=== PATIENT | female | born 1945 | race Caucasian/White ===

== ENCOUNTER 2025-02-23 12:29 | Emergency (ER) | payer MEDICARE, SELFPAY ==
[2025-02-23 12:30] VITALS: BMI 18.5
[2025-02-23 12:39] VITALS: BP 127/82; PULSE 116; RESP 18; TEMP 37.4; O2SAT 97
--- NOTE | 2025-02-23 12:48 | XR_ITS ---
EXAMINATION: Right knee 3 views TECHNIQUE: AP oblique lateral right knee 3 views Date and time: February 23, 2025, 1303 hours INDICATION: Right knee pain 2 months, open nonhealing wound and tumor mass on the lateral side of the knee FINDINGS: Large, at least 13 cm polypoid soft tissue mass lateral to the knee Severe osteopenia No fracture No cortical bone destruction IMPRESSION: No fracture, no cortical bone destruction
--- NOTE | 2025-02-23 12:51 | EDNOTE_ITS ---
ED General RME/HPI General Chief complaint: Wound/Laceration Stated complaint: wound check Time Seen by Provider: 02/23/25 12:46 Arrival date/time: 02/23/25 12:29 CC: Open ulceration to the lateral aspect of the right knee HPI ongoing since 2019 with progressive increase in severity. Was referred by PCP for concern of osteomyelitis versus septic arthritis. Patient denies any knee pain, denies any knee tenderness. 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 Patient is afebrile nontoxic-appearing not in any acute distress. Ulceration is painless Related Data Allergies Allergy/AdvReac Type Severity Reaction Status Date / Time No Known Allergies Allergy Verified 02/23/25 12:33 Review of Systems Review of Systems Narrative Review of Systems: GEN: No fever, no chills, no weight loss EYES: No discharge, no visual changes, no pain HEENT: No ear pain, no congestion, no sore throat PULM: No shortness of breath, no cough, no congestion CV: No chest pain, no dyspnea on exertion, no palpitations GI: No nausea, no vomiting, no diarrhea, no pain, no constipation : No frequency, no urgency, no dysuria MUSC/SKEL: No joint pain, no back pain SKIN: Right knee ulceration, no rash PSYCH: No hallucinations, no depression HEME/LYMPH: No easy bleeding or bruising tendencies NEURO: No weakness, no headache Past Medical History Social History SMOKING STATUS: Never smoker ED Exam Narrative Physical exam: [General: Thin, not in any acute distress Head normocephalic HEENT: Eyes pupils are PERRLA EOMs intact mouth pink moist membranes uvula is midline swallow symmetrical phonation is normal all the subsystems of HEENT are within acceptable limits Neck is supple nontender Chest equal chest rise nontender to palpation Respiratory: Clear to auscultation no wheezes crackles or rubs CV: Rate rhythm is regular no murmurs rubs or clicks Abdomen is soft nontender no masses positive bowel sounds all 4 quadrants Back: No CVA tenderness no spinous process tenderness from cervical spine thoracic and lumbar spine Skin: 20 cm circular erosion to the lateral aspect of the right knee crusted raised cauliflower appearing erythematous border, no surrounding macular erythema not warm to touch. Eschar covered cratered center. No exudate. No active bleeding. No streaking to the upper leg. Otherwise skin is intact no petechiae rash induration ulceration or crepitus Extremities: Moving all extremity against resistance cap refill less than 2 seconds neurosensory intact Neuro: Awake alert oriented x3 Glascow coma 15 no focal deficits] Course Course Course Narrative: This lesion is highly suspicious for basal cell carcinoma, the patient will need to follow-up outpatient with dermatology for biopsy and pathology. Quality Measures none Orders Category Date Time Status XR knee RT 3V Stat Exams 02/23/25 12:48 Completed CBC Stat Lab 02/23/25 12:58 Completed CMP [Comprehensive Metabolic Panel] Stat Lab 02/23/25 12:58 Completed PT [Prothrombin Time with INR] Stat Lab 02/23/25 12:58 Completed PTT [Partial Thromboplastin Time] Stat Lab 02/23/25 12:58 Completed Vital Signs Vital signs: Vital Signs Temperature 99.4 F 02/23/25 12:39 Pulse Rate 116 H 02/23/25 12:39 Respiratory Rate 18 02/23/25 12:39 Blood Pressure 127/82 02/23/25 12:39 Pulse Oximetry (%) 97 02/23/25 12:39 Oxygen Delivery Method Room Air 02/23/25 12:39 Discharge Plan Plan Patient Disposition: HOME (Self Care) Prescriptions/Referrals Referrals: [facility] [[email or web address] Dermatology [Provider Group, Dermatology] - In 1 week Ben Chauhan PA-C [Primary Care Provider] - In 1 week Problem List Clinical Impression: Leg skin lesion, right Patient/Caregiver Discharge Instructions Other Activity Instructions:: This is highly suspicious for basal cell carcinoma. You will need outpatient biopsy of this lesion as soon as possible. 1: Follow-up with your primary care doctor to address the anemia 2: Get a referral from your doctor if required for dermatology for a biopsy 3: If you develop a fever or increased pain in the right knee increased redness tenderness or unable to bear weight on the right knee return immediately to the emergency room for reevaluation. For: Keep the site clean. Education Materials: Anemia Print Language: Swedish Stand Alone Forms: Gen[employer] Award Info., Work/School Release, Patient Portal Info Letter UBALDO/JUANCARLOS Supervising Physician PA/JUANCARLOS Supervising Physician: Porfirio LAU Clinical Information Provided by: patient Medical Records reviewed [facility] Meds/Rx considered, not ordered None Labs/Rad/Tests considered, not ordered None Chronic Illness/Social Conditions which may negatively complicate care or outcome(s)-explain: None or not applicable Labs Labs: interpreted by pr Lab(s) Interpretation(s): CBC shows mild leukocytosis 11.3 and H&H of 9 and 30.0 respectively. Note there are no old labs for comparison. However the patient does have an MCV of 76, MCH of 22.6, MCHC of 29.1. And RDW standard deviation of 50.5. Platelets at 480. Coags within acceptable limits CMP shows no significant electrolyte imbalances other than glucose of 120. No transaminitis T. bili elevation or renal impairment. Imaging Imaging interpretation: interpreted by pr Imaging Interpretation(s): No cortical or kamran bone distraction in the right knee, no fractures.
[2025-02-23 13:11] LABS: Basophils # (Auto) 0.1 Thou/mm3 (0.0-0.2); Basophils % (Auto) 0 % (0-2.5); Eosinophils # (Auto) 0.0 Thou/mm3 (0.0-0.5); Eosinophils % (Auto) 0 % (0-10); Hematocrit 30.9 % (36.0-46.0); Hemoglobin 9.0 g/dL (12.0-16.0); Immature Granulocytes Auto 0.05 Thou/mm3 (0.00-0.00); Lymphocytes # (Auto) 1.1 Thou/mm3 (1.0-4.8); Lymphocytes % (Auto) 10 % (10-50); Mean Corpuscular HGB Conc 29.1 g/dl (31.0-37.0); Mean Corpuscular Hemoglobin 22.6 pg (25.0-35.0); Mean Corpuscular Volume 78 fL (80-100); Monocytes # (Auto) 1.1 Thou/mm3 (0.0-0.8); Monocytes % (Auto) 10 % (0-12); Neutrophils # (Auto) 9.0 Thou/mm3 (1.8-7.7); Neutrophils % (Auto) 80 % (37-80); Nucleated Red Blood Cell # 0.00 Thou/mm3 (0.00-0.00); Nucleated Red Blood Cell % 0 /100 WBC (0); Platelet Count 480 Thou/mm3 (140-440); RDW Standard Deviation 50.5 fL (36.4-46.3); Red Blood Count 3.98 Miln/mm3 (4.00-5.20); White Blood Count 11.3 Thou/mm3 (3.6-11.0)
[2025-02-23 13:29] LABS: Alanine Aminotransferase 16 U/L (10-49); Albumin, Serum 4.6 gm/dL (3.4-4.8); Albumin/Globulin Ratio 1.4 (1.2-2.2); Alkaline Phosphatase 90 U/L (46-116); Anion Gap 10 (7-16); Aspartate Amino Transferase 27 U/L (0-34); BUN/Creatinine Ratio 24 Ratio (12-20); Bilirubin,Total 0.3 mg/dL (0.3-1.2); Blood Urea Nitrogen 22 mg/dL (9-23); Calcium 9.6 mg/dL (8.3-10.6); Calcium (Corrected) 9.6 mg/dL (8.5-10.1); Carbon Dioxide 24.4 mMol/L (20.0-31.0); Chloride 104 mMol/L (98-107); Creatinine (Component) 0.9 mg/dL (0.6-1.3); Estimated Creatinine Clearance 34.4 mL/min (>60); Globulin 3.2 gm/dL (2.3-3.5); Glucose 120 mg/dL (74-106); Osmolality,Calculated 279 (275-295); Potassium 4.7 mMol/L (3.4-5.1); Sodium 138 mMol/L (136-145); Total Protein 7.8 gm/dL (5.7-8.2); eGFR > 60 See Note
[2025-02-23 13:37] LABS: INR 1.0 (0.9-1.3); Partial Thromboplastin Time 31.3 Seconds (22.0-36.0); Prothrombin Time 11.0 Seconds (9.0-12.2)
== END 2025-02-23 14:25 | disposition home or self-care (01) ==
PROVIDERS: Registered Nurse General Practice; Emergency Provider Family Medicine; PCP Student in an Organized Health Care Education/Training Program
DX: L98.9 Disorder of the skin and subcutaneous tissue, unspecified (principal)
CPT/HCPCS: 36415; 73562; 80053; 85025; 85610; 85730; 99283

== ENCOUNTER → 2025-03-03 | Outpatient (CLI) | payer MEDICARE, SELFPAY ==
--- NOTE | 2025-03-03 12:00 | XR_ITS ---
Examination: MRI right knee without contrast MRI right knee with intravenous contrast Date and time of exam: March 03, 2025, 1231 hours INDICATIONS: Lesion in the lateral side of the knee with swelling and pain 9 months Technique: Multiple MRI axial and sagittal sections knee pre and post intravenous administration 8 cc gadolinium Sagittal T2-weighted images, TR 3500, TE 118 T1 weighted transverse sections, TR 688 T8.5, T2-weighted sagittal sections T1 weighted sagittal sections TR 621, TE 30 T2 axial sections, TR 4, 190, TE 84. Findings: All of the images are limited as the patient cannot straighten the knee, unable to do the exam with the knee coil Large soft tissue mass irregular margins AP dimension 6.1 cm, mediolateral dimension 2.8 cm, cephalocaudad dimension 9.3 cm, adjacent to the distal lateral femoral shaft and proximal lateral tibia The mass shows irregular enhancement on the postcontrast images The mass surrounds the iliotibial band There is significant osteopenia There is no kamran cortical bone destruction No knee effusion Quadriceps tendon and patellar tendons appear intact IMPRESSION: Detail on this study severely limited technically as above Large enhancing soft tissue mass lateral knee adjacent to the distal lateral femoral shaft and proximal lateral tibia Highest on this differential listed soft tissue tumor No kamran cortical bone destruction Given the limited nature of this study, consider CT knee post intravenous contrast follow-up
== END | disposition home or self-care (01) ==
PROVIDERS: PCP Student in an Organized Health Care Education/Training Program; Referring Provider Student in an Organized Health Care Education/Training Program; Visit Provider Student in an Organized Health Care Education/Training Program
DX: R22.41 Localized swelling, mass and lump, right lower limb (principal)
CPT/HCPCS: 73723; A9577